=== PATIENT | female | born 1990 | race Caucasian/White ===

== ENCOUNTER → 2024-07-11 14:14 | Outpatient (BNVA) | payer OTHER, SELFPAY | PROVIDERS: Visit Provider Physician Assistant Surgical ==

== ENCOUNTER 2024-07-28 08:50 | Outpatient (AMB) | payer OTHER, SELFPAY ==
--- NOTE | 2024-07-28 12:09 | MHC.OFFVISWM ---
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: Details: Start time: 11.59pm, End time: 12.44pm ?I spent 40 minutes speaking with the patient on the phone plus an additional 5 minutes reviewing and updating records for a total of 45 minutes HPI Comments Details: Previous weight loss efforts: Slimfast, OTC meds, self diets Wakes up: 10am, Sleeps: 12am Breakfast: skips Lunch: skips Dinner: 4pm (rice, beans and chicken, or pasta Snacks: 8pm (chips, cookies, candy) Exercise: none Fluids: Coffee rarely, tea: none, soda: Cece (2 bottles/day), juice: Propel, ETOH: none PFSH Medical History (Updated 07/28/24 @ 12:14 by Ashok Lopez MD) Casey's palsy Nightmares Insomnia Anxiety Depression Bipolar 1 disorder GERD (gastroesophageal reflux disease) Morbid obesity Surgical History (Updated 07/11/24 @ 14:33 by Montse Barillas CMA) Hx of cholecystectomy History of back surgery Family History (System 07/08/24 @ 10:05 by Marilin Butt) Mother Asthma Allergy Thyroid disease HTN (hypertension) Migraine Family/Other Allergy Asthma Mother Asthma Thyroid disease HTN (hypertension) Migraine Social History (Updated 07/11/24 @ 14:33 by Montse Barillas CMA) Alcohol intake: never Patient Tobacco Use Status: Current everyday Tobacco user Tobacco use type: Cigarette Cigarette Packs Per Day: 1 Physical Exam Vital Signs: BMI result Body Mass Index 43.8 Telehealth Telehealth Telehealth Platform: Telephone Location of provider rendering services: practice address Location of patient: address on file Patient Identification confirmed using: Name, : Yes Telehealth method: voice only Patient verbally consented to treatment: Yes Patient verbally consented to billing insurance company: Yes Patient informed of any privacy concerns related to visit: Yes Minutes spent on Phone/Video with Pt.: 45 Assessment & Plan Assessment & Plan (1) Morbid obesity: Code(s): E66.01 - Morbid (severe) obesity due to excess calories Category: Medical Plan: 1.? Plan for lap sleeve gastrectomy. If diaphragmatic or ventral hernias are present at time of surgery, these will be repaired laparoscopically as well. Risks and complications include possible conversion to an open procedure, anastomotic leak, bleeding requiring transfusion, small bowel obstruction, , DVT and pulmonary embolism, cardiac, or pulmonary complications, as [facility] complications such as anastomotic ulcer, insufficient weight loss and vitamin deficiencies. I emphasized the importance of close follow-up, adherence to instructions and good communication. 2. You will receive a link of our software mara to generate an individualized nutritional and exercise plan specific for you. Please send me a screenshot of the plans you will generate Meal to include lean meat (beef, fish, pork, turkey, chicken), or armenian yogurt, or egg whites, or beans with a salad with olive oil and fruits (berries, pears, apples, kiwi). Avoid salt, breads, potatoes, rice, pasta, desserts. ?3. If you choose shakes, each shake would be drunk slowly, like coffee in a period of 2 hours. ?4. If you choose bars, cut each bar in 4 pieces and eat each piece in 30min ?to make each bar last 2 hours. ?5. I emphasized the importance of measuring accurately the food portion and measure it when serving the food in plate ?6. The meal portions include a specific number of forks of meat and salad. You always eat the meat portion but you can replace up to half of salad/vegetables portion with rice, potatoes or pasta, or a fruit ?if you like. The less you do it the better weight loss will be. ?7. One full-size fork is what it can be scooped on the fork without falling aside and not what can be bit with the fork. Use regular forks like those you find in a typical restaurant. ?8.? Please send me weight measurements as soon as possible and then once a week. Always include your diet and exercise plan. 9. The best choice would be to purchase a stationary bike, elliptical or treadmill at home that can track calories. Let me know if you do so I can give you an exercise plan. ?10.?It is important of avoiding and for at least 18 months postoperatively and has been discussed at the infosession. ?11. Goal is to lose at least 1.5-2lbs per week ?12. Goal to lose 10% of your weight before surgery, which is about 24lbs. Ultimate weight goal: 215lbs before surgery 13. Please follow the diet plan exactly without any change. If you don't like something about the plan or you feel hungry you need to communicate with me so I can help you revise the plan. You should not change the plan yourself. 14. To be scheduled for EGD due to history of GERD. The possibility of biopsies was discussed. Patient needs to avoid use of NSAIDs and aspirin for 1 week prior to EGD. Risks of perforation and bleeding was discussed with the patient. This will be an outpatient procedure with IV sedation. Orders: Orders Insulin Today E66.01 - Morbid (severe) obesity due to excess calories, K21.9 - Gastro-esophageal reflux disease without esophagitis H Pylori Breath Test Today E66.01 - Morbid (severe) obesity due to excess calories, K21.9 - Gastro-esophageal reflux disease without esophagitis Lipid Panel Today E66.01 - Morbid (severe) obesity due to excess calories, K21.9 - Gastro-esophageal reflux disease without esophagitis Comprehensive Met. Panel Today E66.01 - Morbid (severe) obesity due to excess calories, K21.9 - Gastro-esophageal reflux disease without esophagitis C Reactive Protein Today E66.01 - Morbid (severe) obesity due to excess calories, K21.9 - Gastro-esophageal reflux disease without esophagitis Vitamin B1 Today E66.01 - Morbid (severe) obesity due to excess calories, K21.9 - Gastro-esophageal reflux disease without esophagitis Vitamin A Today E66.01 - Morbid (severe) obesity due to excess calories, K21.9 - Gastro-esophageal reflux disease without esophagitis TSH reflex Free T4 Today E66.01 - Morbid (severe) obesity due to excess calories, K21.9 - Gastro-esophageal reflux disease without esophagitis Ferritin Today E66.01 - Morbid (severe) obesity due to excess calories, K21.9 - Gastro-esophageal reflux disease without esophagitis ECG 12 lead EKG Today E66.01 - Morbid (severe) obesity due to excess calories, K21.9 - Gastro-esophageal reflux disease without esophagitis Hemoglobin A1c Today E66.01 - Morbid (severe) obesity due to excess calories, K21.9 - Gastro-esophageal reflux disease without esophagitis Complete Blood Count Auto Diff Today E66.01 - Morbid (severe) obesity due to excess calories, K21.9 - Gastro-esophageal reflux disease without esophagitis IRON PROFILE Today E66.01 - Morbid (severe) obesity due to excess calories, K21.9 - Gastro-esophageal reflux disease without esophagitis Vitamin B12 and Folate Today E66.01 - Morbid (severe) obesity due to excess calories, K21.9 - Gastro-esophageal reflux disease without esophagitis Zinc Today E66.01 - Morbid (severe) obesity due to excess calories, K21.9 - Gastro-esophageal reflux disease without esophagitis Vitamin D 25-OH Total Today E66.01 - Morbid (severe) obesity due to excess calories, K21.9 - Gastro-esophageal reflux disease without esophagitis US abdomen comp w elastography Today E66.01 - Morbid (severe) obesity due to excess calories, K21.9 - Gastro-esophageal reflux disease without esophagitis XR chest 2V Today E66.01 - Morbid (severe) obesity due to excess calories, K21.9 - Gastro-esophageal reflux disease without esophagitis FL upper GI w air Today E66.01 - Morbid (severe) obesity due to excess calories, K21.9 - Gastro-esophageal reflux disease without esophagitis Referrals Behavioral Health Referral E66.01 - Morbid (severe) obesity due to excess calories, K21.9 - Gastro-esophageal reflux disease without esophagitis Nutrition/Dietitian Referral E66.01 - Morbid (severe) obesity due to excess calories, K21.9 - Gastro-esophageal reflux disease without esophagitis
[2024-07-28 12:19] VITALS: BMI 43.8
== END 2024-07-28 12:44 | disposition home or self-care (01) ==
LOC: HO.HBS 08:50
PROVIDERS: Visit Provider Surgery
DX: E66.01 Morbid (severe) obesity due to excess calories (principal)
CPT/HCPCS: 99204

== ENCOUNTER → 2024-07-28 08:50 | Outpatient (BNVA) | payer OTHER, SELFPAY | PROVIDERS: Visit Provider Surgery ==

== ENCOUNTER 2024-08-11 09:39 | Outpatient (REF) | payer OTHER, SELFPAY ==
--- NOTE | ~2024-08-11 | US_ITS ---
EXAMINATION: US COMPLETE ABDOMEN WITH LIVER ELASTOGRAPHY CLINICAL INFORMATION: Morbid obesity COMPARISON: None available. TECHNIQUE: Real-time imaging of the abdominal viscera. Noninvasive ultrasound liver fibrosis assessment is performed using Johana ElastPQ point quantification shear wave elastography (pSWE) with a C5-2 MHz transducer. Multiple elastography samples are obtained. FINDINGS: PANCREAS: . The visualized pancreatic head and body are normal in appearance. The remainder of the pancreas is obscured from visualization by the overlying bowel gas. ABDOMINAL AORTA: The proximal, middle, and distal aortic segments are normal in caliber. INFERIOR VENA CAVA: Visualized portions are normal. LIVER: Liver is enlarged with increased echogenicity. No focal lesion or intrahepatic biliary duct dilatation. The right lobe measures 19.6 cm in length. The left lobe measures 10.2 cm in length. Portal flow is towards the liver (hepatopetal). Shear wave liver elastography median stiffness is 1.92 m/s (reference: normal median stiffness is 1.3 m/s or less). IQR/median stiffness to assess sampling precision is 0.08 (reference: good quality data set is IQR/median stiffness of 0.15 or less). GALLBLADDER: Status post cholecystectomy COMMON BILE DUCT: Normal in caliber measuring 0.3 cm in diameter. RIGHT KIDNEY: . No hydronephrosis. No renal calculi or focal parenchymal lesions. The kidney measures 11.0 cm in maximum dimension. LEFT KIDNEY: . No hydronephrosis. No renal calculi or focal parenchymal lesions. The kidney measures 10.6 cm in maximum dimension. SPLEEN: Normal. The spleen measures 11.2 cm in maximum dimension. FREE FLUID: None. US/US abdomen comp w elastography IMPRESSION: 1. Enlarged echogenic liver consistent with hepatic steatosis 2. Liver elastography: Although measurements are suggestive of compensated advanced chronic liver disease, there is statistical variability of the sampling which decreases accuracy. REFERENCE: Society of Radiologists in Ultrasound Liver Stiffness Thresholds (2020): LIVER STIFFNESS THRESHOLDS: *Liver Stiffness equal or less than 1.3 m/s: High probability of being normal. *Liver Stiffness less than 1.7 m/s: In the absence of other known clinical signs, rules out compensated advanced chronic liver disease. *Liver Stiffness 1.7-2.1 m/s: Suggestive of compensated advanced chronic liver disease but need further test for confirmation. *Liver Stiffness over 2.1 m/s: Rules in compensated advanced chronic liver disease. *Liver Stiffness over 2.4 m/s: Suggestive of clinically significant portal hypertension. QUALITY OF DATA SET: *IQR/Median value equal or less than 0.15 implies a quality data set. *IQR/Median value over 0.15 implies a poor quality data set. SIGNIFICANT CHANGE FROM PRIOR EXAM: Significant change if liver stiffness measurement is 10% or greater from prior exam. OTHER CONSIDERATIONS: The stage of liver fibrosis may be overestimated in the setting of acute hepatitis, liver inflammation, elevated liver function tests, hepatic vascular congestion, obstructive cholestasis, non-fasting state, and infiltrative diseases such as amyloidosis and lymphoma. In some patients with NAFLD, the liver stiffness thresholds for compensated advanced chronic liver disease may be lower. In causes other than viral hepatitis and NAFLD, liver stiffness thresholds are not well established. Electronically signed by: Luis Armando Sharpe MD 10/04/2024 11:06 AM ROSY ANNA
== END 2024-08-11 09:40 | disposition home or self-care (01) ==
LOC: HO.US 09:39
PROVIDERS: PCP Internal Medicine; Visit Provider Surgery
DX: E66.01 Morbid (severe) obesity due to excess calories (principal); K21.9 Gastro-esophageal reflux disease without esophagitis
CPT/HCPCS: 76700; 76981

== ENCOUNTER 2024-08-19 09:49 | Day surgery (SDC) | payer OTHER, SELFPAY ==
--- NOTE | 2024-08-14 14:18 | HO.ANESPROP2 ---
Documented by User: Marilou Welsh NP 08/14/24 14:19 HPI - Anesthesia Eval Consult details Narrative: 33yo F for Upper Endoscopy PMFSH Active Problems Active Problems: All Active Problems Casey's palsy (Acute) Nightmares (Acute) Insomnia (Acute) Anxiety (Acute) Depression (Acute) Bipolar 1 disorder (Acute) GERD (gastroesophageal reflux disease) (Acute) Morbid obesity (Acute) Past Medical History Medical History Casey's palsy Nightmares Insomnia Anxiety Depression Bipolar 1 disorder GERD (gastroesophageal reflux disease) Morbid obesity Family History Family History Mother Asthma Allergy Thyroid disease HTN (hypertension) Migraine Family/Other Allergy Asthma Mother Asthma Thyroid disease HTN (hypertension) Migraine Surgical History Surgical History Hx of cholecystectomy History of back surgery Social History Social History Alcohol intake: never Patient Tobacco Use Status: Current everyday Tobacco user Tobacco use type: Cigarette Cigarette Packs Per Day: 1 Have you been hit, kicked, punched, or otherwise hurt by someone within the past year? If so, by whom?: No Are you DNR?: No Advance Directives: No Advance Directives Information Provided: Yes Nutrition Risks: No Nutritional Risk Meds Allergies Allergy/AdvReac Type Severity Reaction Status Date / Time ibuprofen [From Advil] Allergy Severe Anaphylaxis Verified 07/28/24 12:09 Home Medications ?Medication ?Instructions ?Recorded ?Confirmed ?Last Taken ?Type hydroxyzine pamoate 50 mg capsule 50 mg PO TID 07/11/24 07/28/24 Unknown History lumateperone 42 mg capsule 42 mg PO DAILY 07/11/24 07/28/24 Unknown History (Caplyta) prazosin 1 mg capsule 1 mg PO BEDTIME 07/11/24 07/28/24 Unknown History trazodone 50 mg tablet 100 mg PO BEDTIME PRN 07/11/24 07/28/24 Unknown History Assessment and Plan Assessment Anesthesia Assessment: Chart Reviewed Documented by User: Lori Vinson MD 08/19/24 10:50 PMFSH Past Medical History Medical History Casey's palsy Nightmares Insomnia Anxiety Depression Bipolar 1 disorder GERD (gastroesophageal reflux disease) Morbid obesity Family History Family History Mother Asthma Allergy Thyroid disease HTN (hypertension) Migraine Family/Other Allergy Asthma Mother Asthma Thyroid disease HTN (hypertension) Migraine Surgical History Surgical History Hx of cholecystectomy History of back surgery History of Problems with Anesthesia: No Social History Social History Alcohol intake: never Patient Tobacco Use Status: Current everyday Tobacco user Tobacco use type: Cigarette Cigarette Packs Per Day: 1 Have you been hit, kicked, punched, or otherwise hurt by someone within the past year? If so, by whom?: No Are you DNR?: No Advance Directives: No Advance Directives Information Provided: Yes Nutrition Risks: No Nutritional Risk Meds Allergies Allergy/AdvReac Type Severity Reaction Status Date / Time ibuprofen [From Advil] Allergy Severe Anaphylaxis Verified 07/28/24 12:09 Home Medications ?Medication ?Instructions ?Recorded ?Confirmed ?Last Taken ?Type hydroxyzine pamoate 50 mg capsule 50 mg PO TID 07/11/24 07/28/24 Unknown History lumateperone 42 mg capsule 42 mg PO DAILY 07/11/24 07/28/24 Unknown History (Caplyta) prazosin 1 mg capsule 1 mg PO BEDTIME 07/11/24 07/28/24 Unknown History trazodone 50 mg tablet 100 mg PO BEDTIME PRN 07/11/24 07/28/24 Unknown History Exam Airway Mallampati Class: III TM Dist: >3cm Neck ROM: Full Loose/Missing/Broken Teeth: No Heart: RRR Lungs: CTA Assessment and Plan Assessment Anesthesia Assessment: Anesthesia Plan Discussed Final Anesthetic Review History of Problems with Anesthesia: No NPO: Yes ASA Class: III Final Preanesthetic Review: Meds/Allgs Chart Reviewed, Consent Obtained/Reviewed and Anes Risks/Benef Reviewed Patient Risk: Intermediate Procedure Risk: Intermediate Anesthetic Plan Anesthetic Plan: MAC: Disposition: Standard PACU
[2024-08-19 09:54] VITALS: BP 138/81; PULSE 98; RESP 18; TEMP 36.6; O2SAT 97; BMI 43.3
[2024-08-19] MEDS: Lactated Ringers 1,000 ML 100 ML IVCONT (10:09)
[2024-08-19 10:23] LABS: UPreg QC Valid YES; Urine Pregnancy NEGATIVE (NEGATIVE)
--- NOTE | 2024-08-19 10:52 | P.HPSUR_ITS ---
Pre-Procedural Eval Section A - 24 Hr Update-Section A only Date of Service: 08/19/24 The patient is an INPATIENT: No The patient has been examined within 24 hours of the surgical procedure. The History & Physical has been completed within 30 days and I have reviewed it.: Yes Section B - Complete if H&P > 30 days Chief Complaint: Morbid (severe) obesity due to excess calories Details of Present Illness: GERD Relevant Family History (Specify if Yes): No Relevant Social History: None Present Medications: None Medical History: No relevant PMH History of Previous Operations: No relevant previous surgery Allergies: Allergies Allergy/AdvReac Type Severity Reaction Status Date / Time ibuprofen [From Advil] Allergy Severe Anaphylaxis Verified 07/28/24 12:09 Review of Systems Sugical H&P ROS: Negative: Constitution, Cardiovascular, Respiratory, Neurological, Psychiatric, Hem-Onc, Allergic/Immunologic, Gastrointestinal, Genitourinary, Musculoskeletal, Integumentary, Endocrine and Eyes /Ears/Nose/Throat Exam Surgical H&P Exam: Normal: HEENT, Normal: Heart, Normal: Lungs, Normal: Extremities, Normal: Abdomen, Normal: Skin and Normal: Neurological Plan Diagnosis/Plan: Unchanged (EGD to assess etiology of GERD. Risks of bleeding and perforation were discussed with the patient and she is in agreement with the plan) I have reviewed the history and physical and performed a pertinent physical examination on my patient. No changes have occurred unless specified. Time Spent With Patient Time: Total time managing care of this patient today ____ minutes.
--- NOTE | 2024-08-19 10:56 | P.BOP_ITS ---
Brief Operative Note Date of Service: 08/19/24 Pre-op diagnosis: GERD Post-op diagnosis: same Procedure: PROCEDURE DATE: 08/19/2024 PREOPERATIVE DIAGNOSIS: GERD POSTOPERATIVE DIAGNOSIS: ?Same as above. 1) Normal endoscopy PROCEDURE: [id number] with biopsies Surgeon: Eusebio Lopez M.D.. Ph.D. Web Project Manager: None ? Anesthesia: IV sedation Estimated blood loss: ?Minimal FINDINGS AND PROCEDURE: ? OPERATIVE INDICATIONS: ?The patient is a 33 year old female known to me who is interested in bariatric surgery. The patient has GERD. Based on this information I recommended an upper endoscopy to evaluate the patient's symptoms. Risks and complications of the surgery were discussed with the patient in advance particularly the possibility of perforation or bleeding that may require surgic al intervention. The patient understood the risks and was in agreement with the plan. ? PROCEDURE: After informed consent was obtained by the patient, the patient was ?transferred to the Operating Room and was placed in the supine position.? After successful induction of IV sedation, a mouth block was inserted and the patient was placed in the left lateral decubitus position. An upper endoscopy was performed next, the oropharynx and esophagus appeared within the normal limits. There was no hiatal hernia. The z-line was smooth. Two biopsies were obtained from the distal esophagus 2-3 cm proximal to the GE junction and two additional biopsies from the GE junction. The stomach was entered and it appeared to be of normal size. There was no gastritis. There was no stricture or ulcer. A biopsy was obtained from the gastric fundus and the antrum. No significant bleeding was noted from any of the biopsy sites. Retroflexion of the scope revealed a normal GE junction. The scope was then advanced into the duodenum which appeared to be normal as well. At that point the duodenum ?and the stomach were decompressed and the scope was withdrawn from the patient's mouth. The patient extubated and was transferred in stable condition to the Recovery Room for further care. I was present and performed all steps of the procedure. There were no residents to assist with this case. Francisco Lopez M.D., Ph.D. Surgeon: Ashok Lopez MD Anesthesia: MAC Was an Web Project Manager used for this Procedure?: No Estimated blood loss (mL): 0 IV fluids (mL): 400 Urine output (mL): 0 (No [place] to record output) Pathology: other (1) antrum x1, 2) fundus x1, 3) GE junction x2, 4) distal esophagus x2) Condition: stable Disposition: PACU
[2024-08-19 11:22] VITALS: BP 104/43; PULSE 92; RESP 18; TEMP 36.1; O2SAT 100
[2024-08-19 11:37] VITALS: BP 115/69; PULSE 84; RESP 16; TEMP 36.1; O2SAT 94
== END 2024-08-19 12:12 | disposition home or self-care (01) ==
PROVIDERS: Nurse Practitioner; PCP Internal Medicine; Visit Provider Surgery
PROC: 0DJ08ZZ Inspection of Upper Intestinal Tract, Via Natural or Artificial Opening Endoscopic (ICD-10-PCS; CPT 43235; principal; 2024-08-19 11:00)
DX: K21.9 Gastro-esophageal reflux disease without esophagitis (principal); E66.01 Morbid (severe) obesity due to excess calories; Z68.41 Body mass index [BMI] 40.0-44.9, adult; G51.0 Bell's palsy; F31.9 Bipolar disorder, unspecified; F41.9 Anxiety disorder, unspecified; G47.00 Insomnia, unspecified; Z79.899 Other long term (current) drug therapy; Z88.6 Allergy status to analgesic agent; Z90.49 Acquired absence of other specified parts of digestive tract; Z98.890 Other specified postprocedural states; F17.210 Nicotine dependence, cigarettes, uncomplicated
CPT/HCPCS: 43239; 81025; 88305; 88313; 88342; J2003; J2704

== ENCOUNTER → 2024-08-19 09:49 | Outpatient (BNV) | payer OTHER, SELFPAY | PROVIDERS: PCP Internal Medicine; Visit Provider Surgery | DX: K21.9 Gastro-esophageal reflux disease without esophagitis (principal) | CPT/HCPCS: 43239 ==

== ENCOUNTER 2024-08-22 12:00 | Outpatient (AMB) | payer OTHER, SELFPAY ==
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
== END 2024-08-22 13:00 | disposition home or self-care (01) ==
PROVIDERS: PCP Internal Medicine; Visit Provider Counselor Mental Health
DX: F41.9 Anxiety disorder, unspecified (principal); F32.A Depression, unspecified; F43.9 Reaction to severe stress, unspecified
CPT/HCPCS: 90791

== ENCOUNTER → 2024-08-22 13:02 | Outpatient (BNVA) | payer OTHER, SELFPAY | PROVIDERS: PCP Internal Medicine; Visit Provider Counselor Mental Health ==

== ENCOUNTER → 2024-09-10 10:15 | Outpatient (AMB) | payer OTHER, MEDICAID, SELFPAY ==
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
== END ==
PROVIDERS: PCP Internal Medicine; Visit Provider Counselor Mental Health
DX: F41.9 Anxiety disorder, unspecified (principal); F32.A Depression, unspecified; F43.9 Reaction to severe stress, unspecified
CPT/HCPCS: 90837

== ENCOUNTER 2024-10-08 10:23 | Outpatient (AMB) | payer OTHER, SELFPAY ==
--- NOTE | 2024-10-08 10:10 | A.OFFWM_ITS ---
Intake Intake Visit Reasons: VIDEO BH F/U Allergies ibuprofen [From Advil] Allergy (Severe, Verified 07/28/24 12:09) Anaphylaxis PFSH Medical History Casey's palsy Nightmares Insomnia Anxiety Depression Bipolar 1 disorder GERD (gastroesophageal reflux disease) Morbid obesity Surgical History Hx of cholecystectomy History of back surgery Family History Mother Asthma Allergy Thyroid disease HTN (hypertension) Migraine Family/Other Allergy Asthma Mother Asthma Thyroid disease HTN (hypertension) Migraine Social History Alcohol intake: never Patient Tobacco Use Status: Current everyday Tobacco user Tobacco use type: Cigarette Cigarette Packs Per Day: 1 Behavioral Health Assessment Weight Management Therapy Therapy Notes Details Subjective: PT presents for a follow up visit via Telehealth PT reports she has not been following any meal plan but has been trying to walk more. Also, have not been using the Wegovy as she has been unable to refill it. PT got the scale and this provider helped her setting it up initially but client was unable to finish, so she will need to come to the office and get in-person help setting it up. We also set up her account at [employer] website. PT also shared other sources of stress. Objective: Discussed functioning and sources of stress. Processed barriers to follow program expectations. Supported client setting the tools she needs to use at home that would aid weight loss journey (scale/mara) Used stress management techniques and behavioral modification while reinforcing utilization of resources provided. Assessment/Response: * Mental status: anxious, distractive, oriented X3. Tense but cooperative * Risk reported/identified: none PT was becoming overwhelmed, so we implemented a self-soothing exercise for Sx management. And once she was better we continued. PT was engaged and responded well to modalities. Plan: Continue meeting on a regular basis using CBT- based interventions and Food/Weight/Diet Expectations of change Initial goal to lose 10% of your weight before surgery, which is about 24lbs. Ultimate weight goal: 215lbs before surgery. Initial weight on 07/28/24: 239 lb 4 oz Most recent weight was 237Lbs. She wants to be under 200Lbs. Todays weight: 233.6Lbs Current meal plan: Exercising: None. Walking her dog daily 10 minutes. Nutrition classes: None. PT reports she doesn't know how to access the website to generate meal/exercise plan and/or completing nutrition classes. Assessment & Plan Assessment & Plan (1) Anxiety: Code(s): F41.9 - Anxiety disorder, unspecified (2) Depression: Code(s): F32.A - Depression, unspecified (3) Trauma and stressor-related disorder: Code(s): F43.9 - Reaction to severe stress, unspecified Plan -PT needs to set up an mara with [employer] or [employer] to get help setting up her scale. -PT not cleared. - f/up in 3 weeks Next mara 10/27 @11am - Telehealth Telehealth [facility]health [facility] Location of provider rendering services: other Location of patient: address on file Patient Identification confirmed using: Name, : Yes Telehealth method: video Patient verbally consented to treatment: Yes Patient verbally consented to billing insurance company: Yes Patient informed of any privacy concerns related to visit: Yes Minutes spent on Phone/Video with Pt.: 60 Coding Level of Care Code Established Pt Tele Psytx >53 mins (48359) Patient Type Established Diagnoses Anxiety F41.9 Depression F32.A Trauma and stressor-related disorder F43.9 Time Spent (min) 60
== END 2024-10-08 14:25 | disposition home or self-care (01) ==
LOC: HO.HBST 10:23
PROVIDERS: PCP Internal Medicine; Visit Provider Counselor Mental Health
DX: F41.9 Anxiety disorder, unspecified (principal); F32.A Depression, unspecified; F43.9 Reaction to severe stress, unspecified
CPT/HCPCS: 90837

== ENCOUNTER 2025-04-22 13:42 | Outpatient (AMB) | payer OTHER, MEDICAID, SELFPAY ==
--- NOTE | 2025-04-22 13:44 | MHC.OFFVIS ---
Vital Signs 04/22/25 13:45 Height 5 ft 2 in Weight 239 lb BMI 43.7 BP 114/72 Blood Pressure Location Rt brachial Position Sitting Intake Visit Reasons: Follow up Intake Note: Patient presents for follow up migraines, cervicalgia PNS not scanned last visit 06/26 Allergies ibuprofen (From Advil) Allergy (Severe, Verified 04/22/25 13:47) Anaphylaxis Medication List - Last Reconciled 04/22/25 by Ariela Simmons MD gabapentin 600 mg PO BEDTIME hydroxyzine pamoate 50 mg PO TID lumateperone (Caplyta) 42 mg PO DAILY prazosin 1 mg PO BEDTIME semaglutide (weight loss) (Wegovy) mg subcut trazodone 100 mg PO BEDTIME PRN HPI Comments Details: 34y/o female comes for evaluation of migraines, left facial pain ( Daphne Palsy 2012- 2013) and neck pain. She was last seen in 2021. Her migraines after her Daphne Palsy. The migraines can be bitemporal, retroorbital , parietal pain- sharp pain in eyes, pounding in head, light and noise sensitivty , nausea.It can last 2-3 days .she takes regular tylenol . she takes EXtra strength tylenol 2 tabs q 6 hrs she has visual aura - bright spots.blurry vision she has 3 headaches days a week. Facial pain - started after her Daphne palsy - lower jaw and face and teeth pain- electric shock like pain - few minutes . 1-2 episodes a day. she also has neck pain and shoulder pain. No numbness or tingling. Her recent ophthalmology - in Oct 2024. she also has chronic sleep issues with snoring, gasping arousals, witnessed apneas and excessive daytime sleepiness. [facility] Medical History (Updated 04/22/25 @ 14:11 by Ariela Simmons MD) Hypersomnia Snoring Left facial pain Analgesic overuse headache Chronic migraine with aura Autism Casey's palsy Nightmares Insomnia Anxiety Depression Bipolar 1 disorder GERD (gastroesophageal reflux disease) Morbid obesity Surgical History Hx of cholecystectomy History of back surgery Family History Mother Asthma Allergy Thyroid disease HTN (hypertension) Migraine Family/Other Allergy Asthma Mother Asthma Thyroid disease HTN (hypertension) Migraine Social History Alcohol intake: never Patient Tobacco Use Status: Current everyday Tobacco user Tobacco use type: Cigarette Cigarette Packs Per Day: 1 Physical Exam Vital Signs: Last Vital Signs BP 114/72 04/22/25 13:45 BMI result Body Mass Index 43.7 Const General: cooperative, comfortable and no acute distress Nutritional Appearance: obese Orientation/consciousness: patient oriented x3 Eyes Pupils: Equal, round and reactive pupils present Neuro Other: left facial weakness General: patient oriented x3, gait normal, tone normal, moves all extremities and no focal motor deficits Cranial nerves: Yes Facial sensation intact/muscles of mastication intact, Yes Equal, round and reactive pupils present, Yes Bilaterally intact EOM present, Yes Nystagmus not present and Yes Midline tongue present Motor exam (neuro): 5/5 motor strength present throughout and Normal motor muscle tone present throughout Deep tendon reflexes (DTR's): Right triceps reflex intensity grade: 1+, Left triceps reflex intensity grade: 1+, Rt Biceps (C5, C6): 1+, Left biceps reflex intensity grade: 1+, Right brachioradialis reflex intensity grade: 1+, Left brachioradialis reflex intensity grade: 1+ and Right patellar reflex intensity grade: 1+ Coordination: [id number] test normal Assessment & Plan Assessment & Plan (1) Chronic migraine with aura: Code(s): G43.E09 - Chronic migraine with aura, not intractable, without status migrainosus Category: Medical Qualifiers: Status migrainosus presence: without status migrainosus Intractability: intractable Qualified Code(s): G43.E19 - Chronic migraine with aura, intractable, without status migrainosus (2) Analgesic overuse headache: Code(s): G44.40 - Drug-induced headache, not elsewhere classified, not intractable; T39.95XA - Adverse effect of unspecified nonopioid analgesic, antipyretic and antirheumatic, initial encounter Category: Medical (3) Left facial pain: Code(s): R51.9 - Headache, unspecified Category: Medical (4) Snoring: Code(s): R06.83 - Snoring Category: Medical (5) Hypersomnia: Code(s): G47.10 - Hypersomnia, unspecified Category: Medical Plan Stop tylenol MRI brain to r/o structural causes of left facial pain Consider LP for measuring intracranial pressure I will trial her on topiramate 25mg bid for migraine prophylaxis I will trial her on sumatriptan 50mg as needed for migraines sleep study to r/o sleep apnea. Orders: Orders MR head/brain wo con Today G43.E19 - Chronic migraine with aura, intractable, without status migrainosus, R51.9 - Headache, unspecified RT home sleep study Today G47.10 - Hypersomnia, unspecified, R06.83 - Snoring Medications: New topiramate XR 50 mg PO DAILY 30 caps 6RF sumatriptan succinate take 1 tab at onset of headache; if no relief may repeat 1 tab after at least 2 hrs; max = 4 tabs/24 hr PO 10 tabs 6RF Coding Level of Care Code New Pt Level 4 (66775) Diagnoses Intractable chronic migraine with aura and without status migrainosus G43.E19 Status migrainosus presence: without status migrainosus Intractability: intractable Analgesic overuse headache G44.40; T39.95XA Left facial pain R51.9 Snoring R06.83 Hypersomnia G47.10
[2025-04-22 13:45] VITALS: BP 114/72; BMI 43.7
== END 2025-04-22 14:17 | disposition home or self-care (01) ==
PROVIDERS: PCP Internal Medicine; Visit Provider Psychiatry & Neurology Neurology
DX: G43.E19 Chronic migraine with aura, intractable, without status migrainosus (principal); G44.40 Drug-induced headache, not elsewhere classified, not intractable; T39.95XA Adverse effect of unspecified nonopioid analgesic, antipyretic and antirheumatic, initial encounter; R51.9 Headache, unspecified; R06.83 Snoring; G47.10 Hypersomnia, unspecified
CPT/HCPCS: 99204

== ENCOUNTER → 2025-04-22 13:42 | Outpatient (BNVA) | payer OTHER, SELFPAY | PROVIDERS: PCP Internal Medicine; Visit Provider Psychiatry & Neurology Neurology | DX: G43.E19 Chronic migraine with aura, intractable, without status migrainosus (principal); G44.40 Drug-induced headache, not elsewhere classified, not intractable; T39.95XA Adverse effect of unspecified nonopioid analgesic, antipyretic and antirheumatic, initial encounter; M54.2 Cervicalgia; R06.83 Snoring; G47.10 Hypersomnia, unspecified | CPT/HCPCS: 99202 ==